=== PATIENT | female | born 1990 ===

== ENCOUNTER 2020-09-17 13:41 | Emergency (ER) | payer OTHER ==
[~2020-09-17] VITALS: Ht 160 cm; Wt 56.7 kg
== END 2020-09-17 16:22 | disposition home or self-care (01) ==
LOC: ER 13:41
DX: S00.83XA Contusion of other part of head, initial encounter (principal); V49.9XXA Car occupant (driver) (passenger) injured in unspecified traffic accident, initial encounter; Y93.89 Activity, other specified; Y92.488 Other paved roadways as the place of occurrence of the external cause; Y99.8 Other external cause status